=== PATIENT | male | born 1990 | race African-American/Black ===

== ENCOUNTER 2016-04-17 23:47 | Emergency (ER) | payer OTHER ==
[~2016-04-17] VITALS: Ht 175.3 cm; Wt 67.6 kg
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
[2016-04-18 00:10] VITALS: BP 120/74
[2016-04-18 00:35] VITALS: BP 120/74
--- NOTE | 2016-04-21 09:39 | Diagnostic Imaging Report ---
Indication: Headache Technique: Contiguous 5 mm thick transaxial imaging of the head obtained in a Siem[employer] Sensation [address] scanner. Soft tissue and bone windows generated. Total Dose length Product (DLP): [address] Dose Index Volume (CTDIvol): 70.38 mGy Comparison: none Findings: The size and configuration of the cortical sulci, basal cisterns, and ventricles are within normal limits for age. There is no mass effect, midline shift, or edema identified. There is no evidence of acute hemorrhage or abnormal intra-axial or extra-axial fluid collections. The bones and soft tissues are unremarkable. Impression: No mass effect, edema or acute bleed. The CT scanner at [facility] is accredited by the [employer] and the scans are performed using protocols designed to limit radiation exposure to as low as reasonably achievable to attain images of sufficient resolution adequate for diagnostic evaluation.
== END 2016-04-18 00:38 | disposition home or self-care (01) ==
LOC: EDBD 23:47 → EMR 23:58
DX: S09.8XXA Other specified injuries of head, initial encounter (principal); V49.40XA Driver injured in collision with unspecified motor vehicles in traffic accident, initial encounter; Y92.9 Unspecified place or not applicable; R51 Headache; M54.2 Cervicalgia
CPT/HCPCS: 70450; 99284